=== PATIENT | female | born 1970 | race Caucasian/White ===

== ENCOUNTER 2016-05-29 10:31 | Outpatient (RCR) | payer OTHER ==
[~2016-05-29 10:31] MED LIST: AMRIX15 MG PO; CENTRUM1 TAB PO; TOPAMAX 25MG25 MG PO; TREXIMET PO
== END 2016-07-05 13:08 ==
LOC: WSOH 10:31
DX: M25.562 Pain in left knee (principal); S83.242D Other tear of medial meniscus, current injury, left knee, subsequent encounter; S83.412D Sprain of medial collateral ligament of left knee, subsequent encounter; M17.12 Unilateral primary osteoarthritis, left knee; X50.0XXD Overexertion from strenuous movement or load, subsequent encounter; Y99.0 Civilian activity done for income or pay